=== PATIENT | female | born 1980 | race Hispanic/Latino ===

== ENCOUNTER 2024-11-04 00:01 | Emergency (ER) | payer OTHER ==
[~2024-11-04] VITALS: Ht 160 cm; Wt 98.4 kg
[2024-11-04 00:05] VITALS: PULSE 72; RESP 18; TEMP 98.7
[2024-11-04] MEDS ORDERED: KETOROLAC TROMETHAMINE 60 MG/2 ML VIAL ONE (00:13)
[2024-11-04] MEDS: KETOROLAC TROMETHAMINE 60 MG/2 ML VIAL IM STA (00:17)
[2024-11-04] MEDS ORDERED: ULTRAM 50MG50 MG PO (02:17)
[2024-11-04] MEDS: Morphine 4mg INJECTION 4 MG/ML INJ IM STA (02:43)
[2024-11-04 02:48] VITALS: BP 129/66; PULSE 71; RESP 18; TEMP 98.3; O2SAT 99
== END 2024-11-04 02:49 | disposition home or self-care (01) ==
LOC: ER 00:08
DX: M79.604 Pain in right leg (principal); S86.811A Strain of other muscle(s) and tendon(s) at lower leg level, right leg, initial encounter; X50.1XXA Overexertion from prolonged static or awkward postures, initial encounter; Y92.89 Other specified places as the place of occurrence of the external cause; E11.9 Type 2 diabetes mellitus without complications; K76.9 Liver disease, unspecified
CPT/HCPCS: 73552; 73590; 99284; J1885; J2270